=== PATIENT | female | born 2000 | race Caucasian/White ===

== ENCOUNTER 2020-11-05 08:46 | Emergency (ER) | payer OTHER ==
[~2020-11-05 08:46] MED LIST: IBUPROFEN600 MG PO; NORCO 7.5-3251 EACH PO; OMEPRAZOLE20 M1 PO; ONDANSETRON ODT4 MG SL
[2020-11-05] MEDS ORDERED: ZOFRAN4 MG PO (10:43)
== END 2020-11-05 10:50 | disposition home or self-care (01) ==
LOC: ER1 08:46
DX: R19.7 Diarrhea, unspecified (principal); R11.2 Nausea with vomiting, unspecified; R51.9 Headache, unspecified; Z20.822 Contact with and (suspected) exposure to COVID-19
CPT/HCPCS: 99284; U0002

== ENCOUNTER → 2021-11-12 | Outpatient (CLI) | payer OTHER ==
[~2021-11-12] MED LIST changes: +ZOFRAN4 MG PO
== END ==
LOC: CT 13:30
DX: R10.13 Epigastric pain (principal)
CPT/HCPCS: Q9967